=== PATIENT | female | born 1940 | race Caucasian/White ===

== ENCOUNTER 2022-02-14 13:04 | Emergency (ER) | payer OTHER, MEDICARE, MEDICAID ==
[~2022-02-14] VITALS: Ht 167.6 cm; Wt 63.5 kg
[~2022-02-14 13:04] MED LIST: ASPIRIN EC81 MG PO; DIAZEPAM5 MG PO; IBUPROFEN600 MG PO; LISINOPRIL20 MG PO; LOVASTATIN20 MG PO
== END 2022-02-14 14:41 | disposition home or self-care (01) ==
LOC: ED 13:04
DX: S62.616A Displaced fracture of proximal phalanx of right little finger, initial encounter for closed fracture (principal); S01.01XA Laceration without foreign body of scalp, initial encounter; I10 Essential (primary) hypertension; E78.00 Pure hypercholesterolemia, unspecified; F17.200 Nicotine dependence, unspecified, uncomplicated; Z79.899 Other long term (current) drug therapy; Z79.82 Long term (current) use of aspirin; W00.0XXA Fall on same level due to ice and snow, initial encounter
CPT/HCPCS: 70450; 73140; 99284-25

== ENCOUNTER 2022-08-09 13:09 | Emergency (ER) | payer MEDICARE, OTHER ==
[~2022-08-09] VITALS: Ht 167.6 cm; Wt 63.5 kg
[2022-08-09] MEDS ORDERED: CITALOPRAM HBR20 MG PO (13:35)
[2022-08-09 15:38] VITALS: BP 171/104
== END 2022-08-09 15:40 | disposition home or self-care (01) ==
LOC: ED 13:09
DX: S01.01XA Laceration without foreign body of scalp, initial encounter (principal); M25.521 Pain in right elbow; W19.XXXA Unspecified fall, initial encounter; F03.90 Unspecified dementia, unspecified severity, without behavioral disturbance, psychotic disturbance, mood disturbance, and anxiety; I10 Essential (primary) hypertension; F17.200 Nicotine dependence, unspecified, uncomplicated; Z79.899 Other long term (current) drug therapy
CPT/HCPCS: 12002; 70450; 72125; 73080; 99283-25

== ENCOUNTER 2023-08-15 12:49 | Emergency (ER) | payer MEDICARE, OTHER ==
[~2023-08-15] VITALS: Ht 167.6 cm; Wt 59.1 kg
[~2023-08-15 12:49] MED LIST changes: +CITALOPRAM HBR20 MG PO
[2023-08-15] MEDS ORDERED: SEROQUEL50 MG PO (13:07)
[2023-08-15] MEDS ORDERED: VISTARIL25 MG PO (13:07)
[2023-08-15] MEDS ORDERED: HYDROXYZINE PAM25 MG PO (13:07)
[2023-08-15 13:14] VITALS: BP 127/69
== END 2023-08-15 13:19 | disposition home or self-care (01) ==
LOC: ED 12:49
DX: N81.10 Cystocele, unspecified (principal); I10 Essential (primary) hypertension; F03.90 Unspecified dementia, unspecified severity, without behavioral disturbance, psychotic disturbance, mood disturbance, and anxiety; F17.200 Nicotine dependence, unspecified, uncomplicated; Z79.899 Other long term (current) drug therapy
CPT/HCPCS: 99282

== ENCOUNTER 2023-09-21 12:07 | Emergency (ER) | payer OTHER, MEDICARE ==
[~2023-09-21] VITALS: Ht 167.6 cm; Wt 63.3 kg
[~2023-09-21 12:07] MED LIST changes: +CEPHALEXIN500 M1 PO; +CITALOPRAM HBR10 MG PO; +HYDROXYZINE PAM25 MG PO; +OLANZAPINE5 MG PO; +SEROQUEL50 MG PO; +TYLENOL325 MG PO; +VISTARIL25 MG PO
[2023-09-21 13:06] VITALS: BP 142/84
== END 2023-09-21 13:06 | disposition home or self-care (01) ==
LOC: ED 12:07
DX: Z04.3 Encounter for examination and observation following other accident (principal); I10 Essential (primary) hypertension; F03.C0 Unspecified dementia, severe, without behavioral disturbance, psychotic disturbance, mood disturbance, and anxiety; F17.200 Nicotine dependence, unspecified, uncomplicated; W17.89XA Other fall from one level to another, initial encounter; Z79.899 Other long term (current) drug therapy
CPT/HCPCS: 99284

== ENCOUNTER 2023-11-06 06:59 | Emergency (ER) | payer MEDICARE, OTHER ==
[~2023-11-06] VITALS: Ht 167.6 cm; Wt 55.0 kg
[2023-11-06] MEDS ORDERED: ZYPREXA2.5 MG PO (07:34)
[2023-11-06 07:36] VITALS: BP 159/77
== END 2023-11-06 07:30 | disposition home or self-care (01) ==
LOC: ED 06:59
DX: S50.312A Abrasion of left elbow, initial encounter (principal); W06.XXXA Fall from bed, initial encounter; Z66 Do not resuscitate; I10 Essential (primary) hypertension; E03.9 Hypothyroidism, unspecified; F03.90 Unspecified dementia, unspecified severity, without behavioral disturbance, psychotic disturbance, mood disturbance, and anxiety; F17.200 Nicotine dependence, unspecified, uncomplicated; Z79.899 Other long term (current) drug therapy
CPT/HCPCS: 99283

== ENCOUNTER 2024-06-23 16:32 | Emergency (ER) | payer MEDICARE, OTHER ==
[~2024-06-23] VITALS: Ht 167.6 cm; Wt 54.5 kg
[~2024-06-23 16:32] MED LIST changes: +ZYPREXA2.5 MG PO
[2024-06-23] MEDS ORDERED: LOPERAMIDE2 M1 PO (16:46)
[2024-06-23] MEDS ORDERED: ALPRAZOLAM0.25 MG PO (16:46)
[2024-06-23] MEDS ORDERED: STIMULANT LAXA1 EACH PO (16:47)
[2024-06-23] MEDS ORDERED: MILK OF MA400 MG/5 M PO (16:47)
[2024-06-23 17:36] VITALS: BP 162/101
== END 2024-06-23 17:30 | disposition home or self-care (01) ==
LOC: ED 16:32
DX: S00.03XA Contusion of scalp, initial encounter (principal); W19.XXXA Unspecified fall, initial encounter; I10 Essential (primary) hypertension; F17.200 Nicotine dependence, unspecified, uncomplicated; Z79.899 Other long term (current) drug therapy
CPT/HCPCS: 70450; 99284-25

== ENCOUNTER 2025-01-11 16:53 | Inpatient (IN) | payer MEDICARE, OTHER ==
[~2025-01-11] VITALS: Ht 167.6 cm; Wt 58.5 kg
[~2025-01-11 16:53] MED LIST changes: +ALPRAZOLAM0.25 MG PO; -CITALOPRAM HBR10 MG PO; +CITALOPRAM HBR40 MG PO; +IMODIUM A-D2 M2 PO; +MILK OF MA400 MG/5 M PO; +STIMULANT LAXA1 EACH PO; -ZYPREXA2.5 MG PO
[2025-01-11] MEDS ORDERED: IBLOOD GLUCOSE TEST STRIP 1 EA TEST XX ONE (17:00)
[2025-01-11] MEDS ORDERED: MIDAZOLAM HCL 2 MG/2 ML VIAL IV ONE (17:15)
[2025-01-11 17:20] LABS: BASOPHILS 0.5 % (0.1-1.2); EOSINOPHILS 1.5 % (0.7-5.8); LYMPHOCYTES 36.6 % (19.3-51.7); MCH 30.1 PG (25.6-32.2); MCHC 32.5 g/dL (32.2-35.5); MCV 92.7 fL (79.4-94.8); MONOCYTES 5.4 % (4.7-12.5); NEUTROPHILS 52.4 % (34.0-71.1); RBC 4.52 M/uL (3.93-5.22)
[2025-01-11 17:38] LABS: ALT (SGPT) 36.0 U/L (14-59); AST (SGOT) 28.0 U/L (15-37); GLOMERULAR FILTRATION RATE,EST 86.0 mL/min (>60); PROTEIN, TOTAL 6.3 g/dL (6.4-8.2); UREA NITROGEN 19.0 mg/dL (7-18)
[2025-01-11 17:40] LABS: INR 1.07 (0.80-1.30); PROTIME 13.2 Sec (11.2-14.2)
[2025-01-11] MEDS ORDERED: LIDOCAINE 2% VISCOUS 6 ML SYR TOP ONE (18:00)
[2025-01-11 19:00] LABS: BLOOD/HGB, URINE TRACE-I (Negative); KETONE, URINE NEGATIVE (Negative); LEUK ESTERASE, URINE LARGE (negative); NITRITE, URINE POSITIVE (negative)
[2025-01-11] MEDS ORDERED: SODIUM CHLORIDE 0.9% 1,000 ML IV PRN (19:00)
[2025-01-11 19:02] LABS: BACTERIA, URINE 3+ /hpf (negative); CASTS, URINE NONE SEEN \\lpf; CRYSTALS, URINE NONE SEEN (0-1+); EPITHELIAL CELLS, URINE SQUAMOUS 1+ /lpf (0-1+); REFLEX CULTURE, URINE Yes (No)
[2025-01-11 19:03] LABS: INFLUENZA B NAA NEGATIVE (NEGATIVE); RESPIRATORY SYNCYTIAL VIR NAA NEGATIVE (NEGATIVE)
[2025-01-11 19:10] LABS: AMPHETAMINES, URINE NEGATIVE (NEGATIVE); BARBITURATES, URINE NEGATIVE (NEGATIVE); BENZODIAZEPINE, URINE POSITIVE (NEGATIVE); CANNABINOID, URINE NEGATIVE (NEGATIVE); COCAINE, URINE NEGATIVE (NEGATIVE); ECSTASY, URINE NEGATIVE (NEGATIVE); FENTANYL, URINE NEGATIVE (NEGATIVE); METHADONE, URINE NEGATIVE (NEGATIVE); OPIATES, URINE NEGATIVE (NEGATIVE); OXYCODONE, URINE NEGATIVE (NEGATIVE); PHENCYCLIDINE, URINE NEGATIVE (NEGATIVE)
[2025-01-11] MEDS ORDERED: PANTOPRAZOLE SODIUM 40 MG/10 ML VIAL IV ONE (20:00)
[2025-01-11] MEDS ORDERED: AZITHROMYCIN 500 MG in DEXTROSE 5% 250 ML IV ONE (20:15)
[2025-01-11] MEDS ORDERED: SODIUM CHLORIDE 0.9% 1,000 ML IV SCH (21:00)
[2025-01-11] MEDS ORDERED: PROCHLORPERAZINE EDISYLATE 10 MG/2 ML VIAL IV PRN (21:00)
[2025-01-11] MEDS ORDERED: PANTOPRAZOLE SODIUM 40 MG/10 ML VIAL IV SCH (21:00)
--- NOTE | 2025-01-11 21:34 | EKG ---
[facility] [address] [facility] [place] [id number] Signed Normal sinus rhythm Nonspecific ST abnormality Abnormal ECG When compared with ECG of 25-MAY-2016 10:45, Vent. rate has increased BY 28 BPM Nonspecific T wave abnormality now evident in Anterior leads Confirmed by Reza Matehws MD () on 01/11/2025 9:34:21 PM Electronically Signed By: REZA MATHEWS MD 01/11/25 2134 PATIENT NAME: WINSOME PARRISH Electrocardiogram DATE OF : 44 PHYSICIAN: REZA MATHEWS MD REPORT #: [id number] REPORT IS CONFIDENTIAL AND NOT TO BE RELEASED WITHOUT AUTHORIZATION
[2025-01-11 21:48] VITALS: BP 123/77
--- NOTE | 2025-01-11 22:17 | NUR ---
VERBAL REPORT RECEIVED FROM SÁNCHEZ KAUFMAN. PATIENT [facility] FLOOR VIA STRETCHER TO ROOM 120. PATIENT IS SOMNOLENT AT THIS TIME. PATIENT IS ON 15L VIA NON- REBREATHER. CPOX AT BEDSIDE, SPO2 READING LOW 90'S. PLACED ON TELE #1 SINUS TACH. FAMILY AT BEDSIDE. BED ALARM ON FOR PATIENT SAFETY. CALL LIGHT IN REACH.
[2025-01-11 22:33] VITALS: BP 91/58
--- NOTE | 2025-01-11 22:45 | NUR ---
HR ON TELE NOTED TO BE 120'S. IN TO ASSESS PT. PT VOMITING SMALL AMOUNT RUST COLORED EMESIS. PT REPOSTIONED TO RIGHT SIDE. ATTEMPTED TO SUCTION, PT CLENCHING TEETH. SpO2 MID 80'S WITH 15L/NRB. HR BACK TO 90'S. PRN N/V ADMIN PER EMAR. OXYGEN TITRATED TO MAX >15L. SpO2 UP TO 89%. MD PHONED AND UPDATED. WILL COME ASSESS PT ON FLOOR. HOB REMAINS ELEVATED. BED ALARM IN PLACE. PT IN VIEW OF NURSES STATION.
[2025-01-11] MEDS ORDERED: MORPHINE SULFATE 4 MG/ML VIAL IV PRN (23:00)
[2025-01-11] MEDS ORDERED: SODIUM CHLORIDE 0.9% 500 ML IV ONE (23:00)
--- NOTE | 2025-01-11 23:44 | NUR ---
MD TO FLOOR. NEW ORDERS RECEIVED. BOLUS INFUSING PER ORDER. RESPIRATIONS 42. SpO2 91% ON VAPOTHERM 25L/100% FIO2. PRN ADMIN PER EMAR. HOB REMAINS ELEVATED. BED ALARM FOR SAFETY. PT IN VIEW OF NURSES STATION.
[2025-01-12] VITALS (11 sets, daily range): BP systolic 100–114; BP diastolic 54–68
--- NOTE | 2025-01-12 00:56 | NUR ---
PATIENT RESTING EYES CLOSED BREATHING SHALLOW RESPIRATIONS 24 BREATHS PER MINUTE. PATIENT ON 25L 100% FIO2 VIA VAPOTHERM. BED ALARM ON FOR PATIENT SAFETY. CALL LIGHT IN REACH. CPOX AT BEDSIDE SPO2 93%, 86 BPM.
--- NOTE | 2025-01-12 01:36 | NUR ---
PATIENT HAS X2 EMESIS. THIS RN SUCTIONS PATIENTS MOUTH. HEAD POSTIONED TO PREVENT ASPIRATION. PATIENT ON 25 L/MIN, FIO2 100% VIA VAPOTHERM. BED ALARM ON FOR PATIENT SAFETY. CPOX AT BEDSIDE, SPO2 92%, 86 BPM, REPSIRATIONS 20 BREATHS PER MINUTE. TELE #1 [address] SR. BED ALARM ON FOR PATIENT SAFETY. CALL LIGHT IN REACH.
--- NOTE | 2025-01-12 04:12 | NUR ---
PATIENT RESPIRATIONS ARE 27 BREATHS PER MINUTE. PRN ADMIN (PER EMAR). PATIENT REPOSITIONED. PATIENT RESTING EYES CLOSED BREATHING LABORED. CPOX AT BEDSIDE READING SPO2 95%, 94 BPM. PATIENT ON 25 L/MIN, FIO2% 100 VIA VAPOTHERM. BED ALARM ON FOR PATIENT SAFETY. CALL LIGHT IN REACH.
--- NOTE | 2025-01-12 05:12 | NUR ---
PATIENT HAS HAD NO CHANGES IN MENTAL STATUS. RESPIRATIONS ARE 26 BREATHS PER MINUTE AND LABORED. CPOX AT BEDSIDE READING 95%, 94 BPM. RECEVING 25 L/MIN, FIO2 100% VIA VAPOTHERM. BED ALARM ON FOR PATION SAFETY. CALL LIGHT IN REACH.
[2025-01-12 05:27] LABS: BASOPHILS 0.2 % (0.1-1.2); EOSINOPHILS 0 % (0.7-5.8); LYMPHOCYTES 2.9 % (19.3-51.7); MCH 30.0 PG (25.6-32.2); MCHC 32.9 g/dL (32.2-35.5); MCV 91.2 fL (79.4-94.8); MONOCYTES 4.4 % (4.7-12.5); NEUTROPHILS 91.7 % (34.0-71.1); RBC 4.56 M/uL (3.93-5.22)
[2025-01-12 05:42] LABS: SMEAR REVIEW BLOOD SEE COMMENTS
[2025-01-12 05:45] LABS: ALT (SGPT) 35.0 U/L (14-59); AST (SGOT) 22.0 U/L (15-37); GLOMERULAR FILTRATION RATE,EST 66.0 mL/min (>60); PHOSPHORUS, INORGANIC 3.5 mg/dL (2.5-4.9); PROTEIN, TOTAL 5.8 g/dL (6.4-8.2); UREA NITROGEN 24.0 mg/dL (7-18)
[2025-01-12 05:49] LABS: CHOLESTEROL/HDL RATIO 3.1; LDL CHOLESTEROL 115.0 mg/dL (< 129); NON-HDL CHOLESTEROL 125.0; VLDL CHOLESTEROL 10.0
--- NOTE | 2025-01-12 06:12 | NUR ---
PATIENT REPOSITIONED IN BED AT THIS TIME. FRESH GOWN PLACED ON PATIENT. TELE #1 [address]ING SR. CPOX AT BEDSIDE SPO2 95%. 97 BPM. PATIENT RESTING EYES CLOSED RESPIRATIONS 24. BED ALARM ON FOR PATIENT SAFETY. CALL LIGHT IN REACH.
--- NOTE | 2025-01-12 07:16 | NUR ---
RECIEVED REPORT FROM MANDEEP TINAJERO, AND MANDEEP CUNNINGHAM. PT IS RESTING IN BED WITH EYES CLOSED. MOISÉS JOSEPH, IN ROOM. VISITOR AT BEDSIDE. VAPOTHERM IS SECURELY ON FACE. CALL LIGHT IS WITHIN REACH.
--- NOTE | 2025-01-12 08:15 | NUR ---
PT RESTING IN BED WITH EYES CLOSED. RR EVEN AND UNLABORED. CPOX AT BEDSIDE, VAPOTHERM SEUCURELY ON FACE. SON IS AT BEDSIDE. CALL LIGHT WITHIN REACH.
[2025-01-12] MEDS ORDERED: MAGNESIUM SULFATE 2 GM/50 ML BAG IV ONE (08:30)
[2025-01-12] MEDS ORDERED: PANTOPRAZOLE SODIUM 40 MG/10 ML VIAL IV SCH (09:00)
--- NOTE | 2025-01-12 09:55 | NUR ---
NOTIFIED DR. MATHEWS OF PT'S AXILLARY TEMP OF 100.5. MD WITH NO ORDERS AT THIS TIME.
[2025-01-12] MEDS ORDERED: PIPERACILLIN/TAZOBACTAM 4.5 GM in DEXTROSE 5% 100 ML IV SCH (10:00)
--- NOTE | 2025-01-12 10:12 | NUR ---
CASE MANAGEMENT IN ROOM SPEAKING WITH [facility] CARE[facility]IVER.
[2025-01-12] MEDS ORDERED: ACETAMINOPHEN 1,000 MG/100 ML VIAL IV ONE (10:15)
--- NOTE | 2025-01-12 10:30 | NUR ---
In to assess Gloria. Farmer the managers from [facility] present. She states pt has been living with them. Pt son kept her home and cared for her for 10 years until she could not longer live at home. 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 Pt is also legally blind. She has severe anxiety and cannot tolerate her wc pushed from behind or someone standing behind her. If pt is awake, she needs to be approached from the front. Pts son, Saravanan, is her POA. Pt is not responsive and all information received from Darian. She plans on speaking with son to check if they would like this pt to start hospice and return to [facility]. I let Darian know, I have spoke with Dr. Leong and he is currently treating the pt as son would like antibiotics to see if pt will awaken. plan on calling the son later to discuss if this is the plan he wishes to cont. Will fu tomorrow.
--- NOTE | 2025-01-12 10:59 | NUR ---
UR CLINICAL REVIEW: 2 MN FOR VERSALUS-PER SUPERVISOR MEETS INPATIENT FOR PNEUMONIA WITH INCREASED OXYGEN DEMANDS, NEED FOR IVF/IV ABX AND SERIAL MONITORING. MEDICARE INPT 01/11/25 @ 2055 NO AUTH REQUIRED PER MEDICARE GUIDELINES DISCHARGE DISPO PENDING FURTHER TREATMENT PLANS
--- NOTE | 2025-01-12 11:11 | NUR ---
ADMINISTERED MEDS PER ORDERS. PT REMAINS UNRESPONSIVE TO TOUCH OR SOUND.
--- NOTE | 2025-01-12 11:23 | NUR ---
IV TYLENOL INFUSION COMPLETE. IV SITE FLUSHED WITH 10 ML NORMAL SALINE AND IS NOW SALINE LOCKED. IV DRESSING REMAINS CLEAN, DRY, AND INTACT. PATIENT IS LYING IN BED WITH EYES CLOSED AND RESPIRATIONS ARE EVEN AND UNLABORED. VAPOTHERM REMAINS IN PLACE. CPOX AT BEDSIDE. CALL LIGHT AND PERSONAL BELONGINGS ARE WITHIN REACH.
[2025-01-12] MEDS ORDERED: PHARMACY RENAL DOSE ADJUSTMENT 1 DOSE MISC PO SCH (12:00)
--- NOTE | 2025-01-12 12:28 | NUR ---
PT RESTING IN BED WITH EYES CLOSED. HOB IS ELEVATED AND RR IS EVEN AND UNLABORED. FALL MATS IN PLACE, BED IN LOWEST POSITION, BED ALARM IS ON. CALL LIGHT IS WITHIN REACH.
--- NOTE | 2025-01-12 13:54 | NUR ---
PATIENT IS LYING IN BED WITH EYES CLOSED AND RESPIRATIONS ARE EVEN AND UNLABORED. PATIENT WITH VAPOTHERM IN PLACE. CALL LIGHT WITHIN REACH.
--- NOTE | 2025-01-12 15:25 | NUR ---
PT RESTING IN BED WITH EYES CLOSED, RR EVEN AND UNLABORED. VAPOTHERM SECURELY ON FACE, HOB IS ELEVATED. CALL LIGHT AND PERSONAL BELONGINGS WITHIN REACH.
--- NOTE | 2025-01-12 16:30 | NUR ---
PT RESTING IN BED WITH EYES CLOSED. RR EVEN AND UNLABORED, HOB IS ELEVATED. FALL MATS IN PLACE, BED IN LOWEST POSITION, BED ALARM ON. CALL LIGHT IS WITHIN REACH.
--- NOTE | 2025-01-12 18:10 | NUR ---
THIS RN AND ROUNDED ON THE PATIENT WITH HER SON AT BEDSIDE. MD NOTIFIED OF MOST RECENET TEMPERATURE AND PATIENT REMAINING UNRESPONSIVE. AWARE. STATED WE WILL CONTINUE WITH IV FLUIDS AND IV ANTIBIOTICS AND CONTINUE TO MONITOR THE FEVER AT THIS TIME. NO NEW ORDERS.
--- NOTE | 2025-01-12 19:22 | NUR ---
REPORT RECEIVED FROM MANDEEP BUTT AND YUMIKO KAUFMAN. PT RESTING IN BED, EYES CLOSED. RESPIRATIONS EVEN AND UNLABORED. IV INFUSING WELL. NO APPARENT NEEDS NOTED AT THIS TIME. CALL LIGHT WITHIN REACH.
[2025-01-12] MEDS ORDERED: IBLOOD GLUCOSE TEST STRIP 1 EA TEST VI PRN (20:15)
--- NOTE | 2025-01-12 20:19 | NUR ---
SPOKE WITH DR. SHELTON RE ACCUCHECK SINCE PT STILL NPO. STATED HE WILL PUT THE ORDER IN.
[2025-01-12] MEDS ORDERED: GLUCAGON,HUMAN RECOMBINANT 1 MG/ML VIAL SUB-Q PRN (20:30)
[2025-01-12] MEDS ORDERED: IBLOOD GLUCOSE TEST STRIP 1 EA TEST XX PRN (20:30)
[2025-01-12] MEDS ORDERED: DEXTROSE 50% 50 ML SYR IV PRN ×2 (20:30)
[2025-01-12] MEDS ORDERED: DEXTROSE 5% 1,000 ML IV PRN (20:30)
[2025-01-12] MEDS ORDERED: DEXTROSE 5% - LACTATED RINGERS 1,000 ML IV SCH (20:30)
--- NOTE | 2025-01-12 20:46 | NUR ---
WINE BLENDER OBTAINED VITALS AND I&O. PT STATES NO NEEDS AT THIS TIME. [facility] WITHIN REACH.
[2025-01-12] MEDS ORDERED: AZITHROMYCIN 500 MG in DEXTROSE 5% 250 ML IV SCH (21:00)
--- NOTE | 2025-01-12 22:04 | NUR ---
PT LAYING IN BED. RESPIRATIONS EVEN SATS 93% ON HFNC 25L/MIN 80% FIO2. PT DEEPLY ASLEEP. PUPILS REACTIVE. IV FLUID INFUSING WELL. CBG 126 MG/DL. DUE MEDICATION GIVEN ORDERED. NO APPARENT NEEDS NOTED AT THIS TIME. CALL LIGHT IN REACH.
--- NOTE | 2025-01-12 23:54 | NUR ---
PT LAYING IN BED. RESPIRATIONS EVEN AND UNLABORED. SATS AT 94% ON 25L, 80% FIO2. IV INFUSING WELL. NO APPARENT NEEDS NOTED AT THIS TIME. CALL LIGHT WITHIN REACH.
[2025-01-13] VITALS (13 sets, daily range): BP systolic 108–147; BP diastolic 56–73
--- NOTE | 2025-01-13 01:47 | NUR ---
ANALYST SALES OBTAINED VITALS AND I&O. PT STATES NO NEEDS AT THIS TIME. CALL LIGHT WITHIN REACH.
[2025-01-13] MEDS ORDERED: Insulin Regular, Human 100 UNIT/ML ML SUB-Q SCH (02:00)
[2025-01-13] MEDS ORDERED: IBLOOD GLUCOSE TEST STRIP 1 EA TEST VI SCH (02:00)
--- NOTE | 2025-01-13 02:14 | NUR ---
IV PUMP ALARMING. NEW BAG IV FLUID INFUSING PER ORDER. IV FLUSHES WNL. PATIENT RESPIRATIONS 24. PRN MEDICATION ADMINISTERED. BS OBTAINED AND RECORDED. NO FURTHER NEEDS AT THIS TIME. CALL LIGHT IN REACH.
--- NOTE | 2025-01-13 02:31 | NUR ---
PT RESTING IN BED, RESPIRATION AT 2AM WAS 24 AND WAS GIVEN [id number] ORDERED, IMPROVED TO 20 BREATHS PER MINUTE. SATS AT 94% ON 25L 80% FIO2 VAPOTHERM. IV INFUSING WELL. NO APPARENT NEEDS NOTED AT THIS TIME. CALL LIGHT IN REACH.
--- NOTE | 2025-01-13 04:10 | NUR ---
PT LAYING IN BED. RESPIRATIONS EVEN AND UNLABORED. SATS 94% ON 25L 80% FIO2. IV INFUSING WELL. NO APPARENT NEEDS NOTED AT THIS TIME. CALL LIGHT WITHIN REACH.
[2025-01-13 05:18] LABS: BASOPHILS 0.3 % (0.1-1.2); EOSINOPHILS 0.1 % (0.7-5.8); LYMPHOCYTES 12.8 % (19.3-51.7); MCH 30.2 PG (25.6-32.2); MCHC 32.7 g/dL (32.2-35.5); MCV 92.4 fL (79.4-94.8); MONOCYTES 5.2 % (4.7-12.5); NEUTROPHILS 81.1 % (34.0-71.1); RBC 3.44 M/uL (3.93-5.22)
[2025-01-13 05:38] LABS: ALT (SGPT) 21.0 U/L (14-59); AST (SGOT) 24.0 U/L (15-37); GLOMERULAR FILTRATION RATE,EST 77.0 mL/min (>60); PROTEIN, TOTAL 4.5 g/dL (6.4-8.2); UREA NITROGEN 18.0 mg/dL (7-18)
--- NOTE | 2025-01-13 06:12 | NUR ---
PT RESTING IN BED. VITAL SIGNS TAKEN AND RECORDED. INTAKE OUTPUT RECORDED. REPOSITIONED PT AND PT'S SAT DROPPED TO 89, RESPIRATIONS WENT UP TO 24 AND SECRETIONS WAS COMING 0UT OF THE MOUTH. SUCTIONED SECRETIONS, MORPHINE GIVEN ORDERED. SAT NOW BACK UP TO 93-94% SON AT BEDSIDE. NO FURTHER NEEDS NOTED AT THIS TIME. CALL LIGHT IN REACH.
--- NOTE | 2025-01-13 06:29 | NUR ---
SPO2 DROPS TO 88%, SUCTIONED BY RN. pt WITH SECRETIONS IN MOUTH AND NARES. NO COUGHING, CLEARING SECRETIONS. VAPOTHERM INCREASED TO 25L, 90% FIO2. SON AT BEDSIDE. EDUCATION PROVIDED ON OXYGEN REQUIREMENTS.
--- NOTE | 2025-01-13 06:40 | NUR ---
WHILE THIS RN WAS TRYING TO OBSERVE PT IF INTERVENTIONS WORKED, PT SUDDENLY DROPPED T0 89% AND SUSTAINED, REPOSITIONED PT, CHANGED CPOX SENSOR, BELINDA RN INCREASED FIO2 TO 90%, PT CAME BACK UP TO 90-91%. SON STILL AT BEDSIDE. DENIES NEEDS AT THIS TIME. CALL LIGHT IN REACH.
--- NOTE | 2025-01-13 07:10 | NUR ---
RECIEVED REPORT FROM MANDEEP SAVAGE. PT IS RESTING IN BED WITH EYES CLOSED. RR IS EVEN AND UNLABORED. HOB IS ELEVATED. VAPOTHERM IS SECURELY IN PLACE, BED ALARM IS ON, BED IN LOWEST POSITION. SON REMAINS AT BEDSIDE.
[2025-01-13] MEDS ORDERED: ALBUTEROL SULFATE 0.083% 3 ML VIAL INH PRN (07:15)
[2025-01-13] MEDS ORDERED: BUDESONIDE 0.5 MG/2 ML VIAL INH SCH (08:55)
--- NOTE | 2025-01-13 09:21 | NUR ---
PATIENT IS LYING IN BED WITH HOB ELEVATED. PATIENT WITH EYES CLOSED AND RESPIRATIONS ARE EVEN AND UNLABORED. VAPOTHERM REMAINS IN PLACE AT 25L AND 100% FIO2. CPOX AT BEDSIDE. PATIENT SON IN THE ROOM. CALL LIGHT AND PERSONAL BELONGINGS ARE WITHIN REACH.
--- NOTE | 2025-01-13 10:13 | NUR ---
RT NOTIFIED THAT PATIENT IS CURRENTY AT 88% ON VAPOTHERM SETTINGS, PER RT NEW ORDER TO MAINTAIN 88-92%, ADJUSTED PARAMETERS ON CPOX FOR ALARMING. PRIMARY RN NOTIFIED.
--- NOTE | 2025-01-13 10:17 | NUR ---
NOTIFIED DR. MATHEWS OF PT'S AXILLARY TEMP OF 100.2. MD TO PUT IN ORDERS.
[2025-01-13] MEDS ORDERED: ACETAMINOPHEN 1,000 MG/100 ML VIAL IV ONE (11:00)
--- NOTE | 2025-01-13 11:03 | NUR ---
MOISÉS TOLEDO AND MOISÉS CHRISTINA ARE IN THE ROOM AT THIS TIME PROVIDING PATIENT CARE. PATIENT SON REMAINS IN THE ROOM.
--- NOTE | 2025-01-13 11:24 | NUR ---
BED BATH, LINEN CHANGE, AND TALAVERA CARE DONE BY THIS FINISHING POWDER PRESS OPERATOR AND MOISÉS CHRISTINA. PATIENT HAD YELLOW MUCOUS FROM MOUTH WITH ROLLING. ORAL CARE PRODUCED MORE YELLOW MUCOUS AND SOME BLOOD ON THE SWABS. PATIENT WAS TURNED ONTO THEIR RIGHT SIDE WITH PILLOWS PLACED BETWEEN THEIR KNEES AND ARMS. HEELS WERE ALSO FLOATED DUE TO REDNESS, MANDEEP VIRAMONTES NOTIFIED.
--- NOTE | 2025-01-13 11:25 | NUR ---
Attempted to see pt and son. Pt is getting a bedbath and son has left. Will try to see later today.
[2025-01-13] MEDS ORDERED: ALBUTEROL/IPRATROPIUM 3 ML NEB INH SCH (12:00)
--- NOTE | 2025-01-13 12:04 | NUR ---
PT RESTING IN BED WITH EYES CLOSED. RR EVEN AND UNLABORED. VAPOTHERM SECURELY ON FACE, CPOX IS AT BEDSIDE. BED ALARM IS ON. CALL LIGHT WITHIN REACH, VISITOR IS AT BEDSIDE.
--- NOTE | 2025-01-13 13:12 | NUR ---
PATIENT IS LYING IN BED WITH EYES CLOSED AND RESPIRATIONS ARE EVEN AND UNLABORED. VAPOTHERM IN PLACE. RESPIRATORY THERAPY NOTIFIED OF PATIENT FAMILY NOT IN THE ROOM AT THIS TIME. RT STATED THANK YOU. MOISÉS TOLEDO REMAINS IN THE ROOM AT THIS TIME.
--- NOTE | 2025-01-13 13:12 | NUR ---
PATIENT'S TEMPERATURE WAS LOWERED TO 99.1, MANDEEP VIRAMONTES NOTIFIED. REPOSITIONED TO THEIR RIGHT SIDE. ORAL CARE PERFORMED AND CHAPSTICK APPLIED TO LIPS.
[2025-01-13] MEDS ORDERED: TYLENOL325 MG PO (13:56)
[2025-01-13] MEDS ORDERED: ARTIFICIAL TEAR15 M3 OU (13:57)
[2025-01-13] MEDS ORDERED: DULCOLAX5 MG PO (13:58)
[2025-01-13] MEDS ORDERED: PEPTO-BISM262 MG/15 PO (14:02)
--- NOTE | 2025-01-13 14:02 | NUR ---
[place] DC REVIEW: CONTINUES NEED FOR VAPOTHERM, NO IMPROVEMENT IN MENTATION. LIVES AT [facility]. PLAN TO RETURN TO [facility]. ADD: 01/14-01/15/25 NO ACTIONS REQUIRED.
--- NOTE | 2025-01-13 14:03 | NUR ---
MED REC COMPLETE
[2025-01-13] MEDS ORDERED: LORazepam 2 MG/ML VIAL IV ONE (15:30)
[2025-01-13 15:33] LABS: BASOPHILS 0.3 % (0.1-1.2); EOSINOPHILS 0 % (0.7-5.8); LYMPHOCYTES 16.7 % (19.3-51.7); MCH 30.2 PG (25.6-32.2); MCHC 31.4 g/dL (32.2-35.5); MCV 95.9 fL (79.4-94.8); MONOCYTES 5.4 % (4.7-12.5); NEUTROPHILS 76.7 % (34.0-71.1); RBC 3.68 M/uL (3.93-5.22)
--- NOTE | 2025-01-13 15:41 | NUR ---
RT IN THE ROOM SUCTIONING PT, CONCERNED THAT PATIENT MAY BE SEIZING. PATIENT IS CLAMPED DOWN, APPEARS TO BE BITING ON TONGUE AND VERY RIGID/STIFF. NO SHAKING OR SEIZURE MOVEMENT NOTED OTHERWISE. MD NOTIFIED, WILL COME TO BEDSIDE TO EVALUATE. JUST AFTER CALL TO MD THIS RN ENTERS ROOM, PT TWITCHING AND HAS SEIZURE LIKE JERKS WITH RT PRESENT AT BEDSIDE. RAPID RESPONSE CALLED AT THIS TIME, MD ARRIVING TO THE FLOOR AT 1515. 2MG IV ATIVAN GIVEN PUSH PER VERBAL ORDERS FROM MD. VS STABLE. SEE CHARTING. CBG 150. ORDERS INPUT FOR STAT CT HEAD W/O CONTRAST, LABS: CBC, CMP, MG, LACTIC AND TYPE & SCREEN (STAT). CURRENTLY PATIENT HAS BIT TONGUE AND ACTIVELY BLEEDING. PT TAKEN TO CT AT 1530. OUTPT RT LOPEZ CALLED TO SEE IF WE CAN COORDINATE TO GET STAT EEG AT BEDSIDE. PT ARRIVES BACK TO FLOOR AT [address] WITH PRIMARY RN/RT/MD AT BEDSIDE.
[2025-01-13 15:49] LABS: ALT (SGPT) 26.0 U/L (14-59); AST (SGOT) 27.0 U/L (15-37); GLOMERULAR FILTRATION RATE,EST 64.0 mL/min (>60); PROTEIN, TOTAL 5.0 g/dL (6.4-8.2); UREA NITROGEN 17.0 mg/dL (7-18)
--- NOTE | 2025-01-13 15:52 | NUR ---
PATIENT RETURNED TO THE FLOOR AT THIS TIME FROM HEAD CT. PATIENT RECONNECTED TO CPOX, VAPOTHERM, AND IV FLUIDS. SEIZURE PADS AND FALL MATS IN PLACE. PATIENT TURNED ON HER RIGHT SIDE. SUCTION WITHIN REACH. PATIENT SON REMAINS SITTING ON THE COUCH AND REPORTS NO NEEDS AT THIS TIME.
[2025-01-13] MEDS ORDERED: LACTATED RINGER'S 1,000 ML IV ONE (16:00)
[2025-01-13] MEDS ORDERED: LORazepam 2 MG/ML VIAL IV PRN (16:00)
[2025-01-13 16:15] LABS: ABO A; RH POSITIVE
[2025-01-13 16:16] LABS: ANTIBODY SCREEN NEGATIVE
[2025-01-13] MEDS ORDERED: VANCOMYCIN HCL 1,500 MG in DEXTROSE 5% 250 ML IV ONE (17:00)
[2025-01-13] MEDS ORDERED: VANCOMYCIN PER PHARMACY PROTOCOL IV SCH (17:00)
--- NOTE | 2025-01-13 17:15 | NUR ---
IV PUMP ALARMING, THIS RN INTO ROOM, BOLUS COMPLETE. IV ABX STARTED - SEE MAR. SON REMAINS PRESENT IN ROOM, PT REMAINS UNRESPONSIVE AND EYES CLOSED. IV REMAINS PATENT AT THIS TIME. BED ALARM IN PLACE FOR SAFETY. ALL PT CARE NEEDS MET AT THIS TIME.
--- NOTE | 2025-01-13 17:15 | NUR ---
RT IS IN WITH PT AT THIS TIME.
--- NOTE | 2025-01-13 18:07 | NUR ---
PATIENT IS LYING IN BED ON HIS LEFT SIDE WITH EYES CLOSED AND RESPIRATIONS ARE EVEN AND UNLABORED. VAPOTHERM IN PLACE. CPOX AT BEDSIDE. SEZURE PADS AND DALL MATS IN PLACE.
--- NOTE | 2025-01-13 19:27 | NUR ---
REPORT RECEIVED FROM WANDER KAUFMAN AND YUMIKO KAUFMAN. PT RESTING IN BED. RESPIRATIONS UNLABORED SATS AT 90% ON 40L 70%FIO2. IV INFUSING WELL. NO APPARENT NEEDS NOTED AT THIS TIME. CALL LIGHT IN REACH.
--- NOTE | 2025-01-13 20:58 | NUR ---
PT LAYING IN BED. RESPIRATIONS UNLABORED. VITAL SIGNS TAKEN AND RECORDED. INTAKE OUTPUT RECORDED. FULL ASSESSMENT DONE. DUE MEDICATIONS GIVEN ORDERED. IV FLUID INFUSING WELL. NO FURTHER NEEDS NOTED AT THIS TIME. CALL LIGHT IN REACH.
--- NOTE | 2025-01-13 22:40 | NUR ---
PT RESTING IN BED. RESPIRATIONS EVEN AND UNLABORED. SATS AT 92-93% ON 40L 50%FIO2 VAPOTHERM. IV INFUSING WELL. NO APPARENT NEEDS NOTED AT THIS TIME. CALL LIGHT IN REACH.
--- NOTE | 2025-01-13 23:29 | NUR ---
PT LAYING IN BED. RESPIRATIONS UNLABORED SATS AT 94% ON 40L 50% FIO2. IV INFUSING WELL. NO APPARENT NEEDS NOTED AT THIS TIME. CALL LIGHT IN REACH.
[2025-01-14] VITALS (11 sets, daily range): BP systolic 90–133; BP diastolic 50–71
--- NOTE | 2025-01-14 01:48 | NUR ---
PT LAYING IN BED. RESPIRATIONS UNLABORED. SATS T95% on 40L 50% FIO2 VAPOTHERM. VITAL SIGNS TAKEN AND RECORDED. INTAKE OUTPUT RECORDED. ACCU CHECK DONE. DUE MEDICATIONS GIVEN. NO FURTHER NEEDS NOTED AT THIS TIME. CALL LIGHT IN REACH.
--- NOTE | 2025-01-14 03:19 | NUR ---
PT HAS A TEMP OF 100.5F, NOTIFIED DR. SHELTON. ACETAMINOPHEN 1000 MG IV ONCE ORDERED.
[2025-01-14] MEDS ORDERED: ACETAMINOPHEN 1,000 MG/100 ML VIAL IV ONE ×2 (03:30→19:00)
--- NOTE | 2025-01-14 03:37 | NUR ---
PT LAYING IN BED, RESPIRATIONS EVEN AND UNLABORED, SATS AT 94% ON 40L 50% FIO2. ACETAMINOPHEN 1000 MG IV GIVEN ONCE FOR TEMP 100.5F. NO OTHER NEEDS NOTED AT THIS TIME. CALL LIGHT IN REACH.
[2025-01-14 05:12] LABS: BASOPHILS 0.3 % (0.1-1.2); EOSINOPHILS 0.2 % (0.7-5.8); LYMPHOCYTES 11.4 % (19.3-51.7); MCH 29.7 PG (25.6-32.2); MCHC 32.1 g/dL (32.2-35.5); MCV 92.6 fL (79.4-94.8); MONOCYTES 4.8 % (4.7-12.5); NEUTROPHILS 82.8 % (34.0-71.1); RBC 3.23 M/uL (3.93-5.22)
[2025-01-14 05:35] LABS: ALT (SGPT) 20.0 U/L (14-59); AST (SGOT) 21.0 U/L (15-37); GLOMERULAR FILTRATION RATE,EST 81.0 mL/min (>60); PROTEIN, TOTAL 4.7 g/dL (6.4-8.2); UREA NITROGEN 14.0 mg/dL (7-18)
--- NOTE | 2025-01-14 06:30 | NUR ---
PT LAYING IN BED. RESPIRATIONS AT 26, MORPHINE GIVEN ORDERED. SATS BETWEEN 93-95% ON 35L 45% FIO2. IV INFUSING WELL. SON AT BEDSIDE. DENIES FURTHER NEEDS. CALL LIGHT IN REACH.
--- NOTE | 2025-01-14 07:22 | NUR ---
RECIEVED REPORT FROM MANDEEP SAVAGE. PATIENT RESTING IN BED WITH EYES CLOSED, RESPIRATIONS EVEN AND UNLABORED, HFNC AND CPOX IN PLACE. FAMILY AT BEDISDE. IVF INFUSING WITHOUT DIFFICULTY. NO NEEDS IDENTIFIED AT THIS TIME. CALL LIGHT IN REACH.
[2025-01-14] MEDS ORDERED: VANCOMYCIN HCL 1,250 MG in DEXTROSE 5% 250 ML IV SCH (09:00)
[2025-01-14] MEDS ORDERED: POTASSIUM CHLORIDE 40 MEQ,LIDOCAINE HCL 1% 40 MG in DEXTROSE 5% 250 ML IV ONE (09:00)
--- NOTE | 2025-01-14 09:31 | NUR ---
REVIEWED NEW CXR, INFORMED OF NEW FRACTURE TO (L) HUMERUS. KIM FROM [facility] CALLED BY CASE [id number] TO VERIFY THAT PATIENT DID NOT FALL, NO RECENT FALLS EITHER. HE REPORTS PATIENT WAS SITTING IN WHEELCHAIR AND LET OUT A LOUD CRY, THEN SLUMPED TO THE LEFT AND BECAME UNRESPONSIVE. NO FALLS THOUGH.
--- NOTE | 2025-01-14 10:30 | NUR ---
Spoke with pts son. Discussed with son what he would like for this pt on dc. He is unclear what pts needs will be. I updated, I had a call from Darian at [facility] and pt may only return if she is on hospice. Pt will now be above their level of care. Pt also has a humerous fracture. Son does not feel pt can return to [facility]. We discussed the different levels of care. Pt [place] on [place] medicaid through the state per son. I contact Zahida at [facility] to confirm. Pt is waiting for EEG to be completed to make decisions. He does state he feels like mom is at the end of her life and is not going to get better. I gave him a Personal choice list of SNFs in our area and helped him check fo medicare ratings. He would like me to check [facility] and [facility] for beds.
--- NOTE | 2025-01-14 11:07 | NUR ---
LOPEZ WITH RT IN DOING EEG PROCEDURE AT THIS TIME. PATIENT IS VERY RIGID, SHE IS HAVING ABNORMAL READINGS ON THE EEG SCAN. NECK IS RIGID WELL PER RT. PRN ATIVAN IS GOING TO BE GIVEN CLOSE TO END OF EEG TO SEE IF ANY CHANGES OR IMPROVEMENT WITH ATIVAN FOR SEIZURES. WILL GET RECORDING WITH MEDICATION ADMINISTRATION FOR REVIEW WELL. PRIMARY RN NOTIFIED OF POC AND UPDATE.
--- NOTE | 2025-01-14 12:27 | NUR ---
PATIENT'S RIGHT HIP AND BACK FLOATED. ORAL CARE DONE. HAIR BRUSHED OUT FOLLOWING EEG.
--- NOTE | 2025-01-14 12:30 | NUR ---
ASSESSMENT COMPLETED. ABX HUNG PER EMAR ORDER. FAMILY AT BEDISDE. PATIENT RESTING WITH EYES CLOSED, HFNC AND CPOX ON. TALAVERA DRAINING. NO OTHER NEEDS IDENTIFIED AT THIS TIME. CALL LIGHT IN REACH.
--- NOTE | 2025-01-14 14:13 | NUR ---
IN ROOM WITH REPAIR SERVICER TO REPOSITION TO FLOATING WITH PILLOWS. LIP CARE PERFORMED. NO NEEDS IDENTIFIED AT THIS TIME. CALL LIGHT IN REACH.
--- NOTE | 2025-01-14 14:22 | NUR ---
Spoke with Dr. Leong. Daughter arrived earlier and both sons were in the room. Planned to go and speak with family with Dr. Leong, family have left. asked if [facility] could take this pt tomorrow. I left a message with Jennifer asking if they could take a pt on the weekend.
--- NOTE | 2025-01-14 14:30 | NUR ---
Updated by Dr. Leong. Son is paving by the airport. He plans to return around 5 pm to meet with myself and
--- NOTE | 2025-01-14 14:37 | NUR ---
SCHEDULED PRN MEDICATION GIVEN FOR AIR HUNGER PER EMAR ORDERS. PATIENT RR 30 WITH INCREASED SECRETIONS. PATIENT HOB AT 40 DEGRESS. PATIENT RESTING WITH EYES CLOSED WITH INCREASED WORK OF BREATHING. NO SIGNS OF DISTRESS. NO NEEDS IDENTIFED AT THIS TIME. CALL LIGHT IN REACH.
[2025-01-14] MEDS ORDERED: LORazepam 2 MG/ML VIAL IV SCH (15:00)
--- NOTE | 2025-01-14 15:00 | NUR ---
RA TRIAL 84%. 90% ON 2 LPM. FORMER SMOKER GOAL 88-92%. GOAL IF ON HOSPICE O2 PRN COMFORT.
--- NOTE | 2025-01-14 16:39 | NUR ---
DR MATHEWS IN ROOM UPDATING PATIENT SON ON PATIENT STATUS. CASE MANAGEMENT IN ROOM DISCUSSING PLACEMENT WITH SON. SCHEDULED MEDICATIONS GIVEN PER EMAR ORDER. SUPPLY AND DISTRIBUTION MANAGER PERFORMED ORAL CARE ON PATIENT. PATIENT RESTING WITH EYES CLOSED, RESPIRATIONS EVEN AND UNLABORED. NO NEEDS IDENTIFIED AT THIS TIME. CALL LIGHT IN REACH.
--- NOTE | 2025-01-14 16:45 | NUR ---
Son returned. Visited with Dr. Leong, RN, and myself. Dr updated son on pts outlook and their is an accepting facility and hospice could admit tomorrow if this is their wish. Son requests to wait for his sister to arrive and discuss. Discussed hospice with family. [facility] would accept this pt as a medicaid terminal operator care pt. [facility] could admit tomorrow as long as it is before 1pm. I'll check back with family later.
--- NOTE | 2025-01-14 16:49 | NUR ---
pt repositioned. pt bottom assessed intact. LH iv site infiltrate from iv infusion. wrapped in a warm blanket.
--- NOTE | 2025-01-14 17:10 | NUR ---
NOtified by staff pts daughter arrived. She and brother would like sometime to discuss plan. I called and spoke with Hospice in [place]. She asks I call the [facility] person tomorrow to see if they will be available to admit this pt. I attempted to contact Jennifer at [facility]. She has left for the day. I recieved a text from [facility] who had agreed to transport this pt to [place] asking if this still the plan. I went and spoke with Dr. Beck and asked if he would be in agreement for this pt to remain here until Friday. I do not have any concrete plans for this pt as the family have not made a decision. Pt also looks to be declining. I am not here tomorrow to cont. to work on arrangements. He believes the family are wanting the pt to stay until Friday. I notified transport we will wait until Friday and contact them if we still need transport. I texted Jennifer from [facility] and let her know we will hold off until Friday and then contacted Hospice and let then know it will be Friday and I will fax orders Friday if we still need hospice.
[2025-01-14] MEDS ORDERED: ARTIFICIAL TEARS 15 ML BTL OU PRN (17:30)
[2025-01-14] MEDS ORDERED: ATROPINE SULFATE 1% OPTH DROPS SL PRN (17:30)
--- NOTE | 2025-01-14 17:34 | NUR ---
In and spoke with Saravanan and his sister, Isaura, who I have know for many years. Reviewed Hospice and they would like pt to remain here until Friday. Saravanan would like to go and see [facility] tomorrow. We did discuss pt seems to be declining and her breathing is labored and her color is off. Both feel she may not survive the weekend. We did discuss comfort car and Saravanan would like to wait and discuss this with Dr. Leong in the morning. Dr. Leong came to the room and let them know he is willing to proceed with whatever they would like to do. Will fu with patient and family on Friday.
[2025-01-14] MEDS ORDERED: SCOPOLAMINE 1 MG/3 DAYS PATCH 1 EACH TDSY TD SCH (18:00)
--- NOTE | 2025-01-14 18:49 | NUR ---
INFORMED DR SHELTON OF PATIENT VS. [facility] WILL PUT IN ORDERS.
[2025-01-14] MEDS ORDERED: LACTATED RINGER'S 1,000 ML IV ONE (19:00)
--- NOTE | 2025-01-14 19:39 | NUR ---
IVF infusing, eyes closed, non responsive, edema to hands present. IVF infusing, repositioned. seizure pads in place. f/c patent. new IV site started
--- NOTE | 2025-01-14 19:49 | NUR ---
tylenol iv, and bolus ivf started
--- NOTE | 2025-01-14 21:00 | NUR ---
Dr Leong in room, tele dc'd as per orders. Pt scored 6 in the MEWS . No rapid response called and MD aware of her situation. Pt is going into hospice. On 4L Oxymask, CPOX at bedside to keep 88-92% sats. Lungs coarse bilat, tacheipneic and tachychardic. eyes closed, non responsive to any stimuly. Repositioned at this time, f/c patent draining small amount of dark yellow urine. IVF bolus infusing, received IV Tylenol earlier, no s/sx adverse reaction to IV abx noted. Bruised areas over arms and redness in toes present, f/c care done. Yaunker at bedside. seizure pads in plaec, Bed alarm on.
--- NOTE | 2025-01-14 21:10 | NUR ---
Repositioned and floated Pt with RN assistance. Changd Pt's bedding and gown PRN. No other needs expressed by Pt-Pt is non-responsive. Call light left in reach. Seizure pads and fall mat in place. Bed alarm on.
--- NOTE | 2025-01-14 22:44 | NUR ---
Increased resp rate at 32, increaed coarseness of lung sounds, present, desatted to 84%. RT notified. O2 changed to termaflowflow 30L 50%, agonal respiration present. RT in room, Dr Leong notified of above. Pt is a Limited code. states "I will be there to assess pt and will notify the family".
--- NOTE | 2025-01-14 22:52 | NUR ---
Dr Leong in room, Pt on 40L 60% vapotherm
--- NOTE | 2025-01-14 22:58 | NUR ---
DR MATHEWS CALLED PTS SON AND INFORMED HIM OF MOTHERS DECLINING STATUS. MD WILL CHANGE CODE TO COMFORT CARE
[2025-01-14] MEDS ORDERED: LORazepam 2 MG/ML VIAL IV PRN ×3 (23:00)
[2025-01-14] MEDS ORDERED: MORPHINE SULFATE 4 MG/ML VIAL IV PRN ×2 (23:00)
[2025-01-14] MEDS ORDERED: MORPHINE SULFATE 10 MG/ML VIAL IV PRN (23:00)
--- NOTE | 2025-01-14 23:17 | NUR ---
DR MATHEWS AT RN STATION AND PUTTING IN NEW ORDERS pt IS NOW COMFORT CARE. VERBAL ORDER READ BACK TO DC pt's IV ABX-VANCO AND ZOSYN. ORDERS DC'D AND PRIMARY RN AWARE.
--- NOTE | 2025-01-15 00:18 | NUR ---
STILL NON RESPONSIVE, TURNED AND REPOSITIONED ON VAPOTHERM 40L/60%. NC. AGONAL BREATHING PRESENT, ORAL CARE DONE, THICK WHITE ORAL DISCHARGE CLEANSED. F/C PATENT. BED ALRM IN PLACE PT N COMOFRT CARE AT THIS TIME, IVF INFUSING, CALM
--- NOTE | 2025-01-15 01:58 | NUR ---
RESTING, STILL UNRESPONSIVE, ON VAPOTHERM 40L 60% O2/NC, RESP MORE EVEN AND UNLABORED, REPOSITIONED, F/C PATENT, LUNGS STILL COARSE., IVF INFUSING W/O PROBLEMS
[2025-01-15 02:01] VITALS: BP 92/54
--- NOTE | 2025-01-15 05:18 | NUR ---
pt continues on Vapotherm 30L/40% O2 NC, Increaed and shallow resp rate, circumoral cyanosis around mouth present. Was medicated with Morphine 4mg IV per resp distress. Turned and repositioned. F/C patent, draining large amount of urine at this time. skin care done. HOB and feet elevated for comofrt. Oral care done. closes mouth when doing oral care.
--- NOTE | 2025-01-15 06:42 | NUR ---
Tacheipneic and shallow breathing noted again. on Vapotherm, Medicated with Ativan 1mg IV. Son in room
--- NOTE | 2025-01-15 07:25 | NUR ---
RECEIVED REPORT FROM MANDEEP MATA. PATIENT RESTING IN BED WITH EYES CLOSED, SON AT BEDSIDE. DR MATHEWS AND RT STEPAN IN ROOM UPDATING SON ON PLAN OF CARE. IVF D/C, IV SALINE LOCKED. PATIENT PLACED ON 2LNC FOR COMFORT. NO NEEDS IDENTIFIED AT THIS TIME. CALL LIGHT IN REACH.
[2025-01-15 08:15] VITALS: BP 95/53
--- NOTE | 2025-01-15 08:43 | NUR ---
PATIENT IS LAYING IN BED. PATIENTS VITAL SIGNS, ORAL CARE AND AM CARE WAS DONE. PATIENT WAS REPOSITIONED ON HER LEFT SIDE. PATIENTS CALL LIGHT IS WITHIN REACH AND NO FURTHER NEEDS AT THIS TIME.
--- NOTE | 2025-01-15 10:57 | NUR ---
PT BEING REPOSITIONED, PT SUCTIONED DUE TO SECRETIONS, AND ATROPINE ADMINISTERED (PER EMAR).
--- NOTE | 2025-01-15 10:59 | NUR ---
PATIENT LAYING IN BED, WITH FAMILY AT BEDSIDE. THIS KENO TERMINAL OPERATOR AND RN TIA AND CJ CHANGED PATIENTS BRIEF AND PREFORMED CATHETER CARE . PATIENT WAS READJUSTED IN BED. PATIENTS CALL LIGHT IS WITHIN REACH AND NO FURTHER NEEDS AT THIS TIME.
--- NOTE | 2025-01-15 12:22 | NUR ---
ADMINISTERED IV MORPHINE FOR INCREASED RESP RATE. PT IS RESTING COMFORTABLY. FAMILY AT BEDSIDE. CALL LIGHT IN REACH.
--- NOTE | 2025-01-15 14:06 | NUR ---
PATIENT IS LAYING IN BED WITH FAMILY AT BEDSIDE. PATIENT WAS READJUSTED IN BED AND CATHETER WAS EMPTIED. CALL LIGHT IS WITHIN REACH AND NO FURTHER NEEDS AT THIS TIME.
--- NOTE | 2025-01-15 15:46 | NUR ---
PATIENT IS LAYING IN BED. PATIENT HAD A BEDBATH. PATIENTS GOWN AND SHEETS WERE CHANGED. PATIENTS CALL LIGHT IS WITHIN REACH AND NO FURTHER NEEDS AT THIS TIME.
--- NOTE | 2025-01-15 16:58 | NUR ---
ROUNDED ON PATIENT, FAMILY AT BEDSIDE. TACHYPANIC BREATHING WITH LESSENED SECRETIONS. FAMILY DENIES NEEDS AT THIS TIME. CALL LIGHT IN REACH.
--- NOTE | 2025-01-15 17:26 | NUR ---
PATIENT IS LAYING IN BED. TWO CNAS AND TWO RN HELP CHANGE PATIENTS BRIEF. PATIENT WAS REPOSITIONED IN BED. CALL LIGHT IS WITHIN REACH AND NO FURTHER NEEDS AT THIS TIME.
--- NOTE | 2025-01-15 18:32 | NUR ---
PATIENT IS LAYING IN BED. PATIENT WAS REPOSITIONED. CALL LIGHT IS WITHIN REACH AND NO FURTHER NEEDS AT THIS TIME.
--- NOTE | 2025-01-15 19:28 | NUR ---
PT ON 2LNC, TACHEIPNEIC AT 24,BUT W/O DISTRESS, NO CYNOSIS NOTED, [address], STILL UNRESPONSIVE, SEIZURE PADS IN PLACE. PT ON COMOFRT CARE. SON IN ROOM.
--- NOTE | 2025-01-15 20:23 | NUR ---
SOME RESP DISTRESS NOTED, TACHEIPNEIC, IRREGULAR, LABORED, MEDICATED WITH MORPHINE 4MG IV. TURNED AND REPOSITIONED, ON 2LNC, ORAL CARE DONE WITH SONE RESISTANCE FROM PT, MOVING TOES, ELEVATED LEGS, F/C PATENT
--- NOTE | 2025-01-15 22:57 | NUR ---
repositioned, f/c patent, on 2 LNC, non responsive
--- NOTE | 2025-01-15 23:12 | NUR ---
no resp distress at this time, comfortable, repositioned, IV Ativan scheduled given
--- NOTE | 2025-01-16 00:57 | NUR ---
VERBAL REPORT RECEIVED FROM MANDEEP MATA, THIS RN TO TAKE OVER PRIMARY RN AT THIS TIME. pt RESTING QUIETLY IN BED WITH EYES CLOSED. RR EVEN AND UNLABORED, 2LNC IN PLACE. NO SIGNS OF RESPIRATORY DISTRESS. pt APPEARS COMFORTABLE AND RELAXED, REMAINS UNRESPONSIVE. BED ALARM ON AND CALL LIGHT IN REACH.
--- NOTE | 2025-01-16 01:36 | NUR ---
rounded on pt, pt remains unresponive to interactions with staff. incontinent of loose bm, katherine and cath care done with help from second rn cinthia thomas and carmen buckley. bilatral hips floats along with ble and arms. left ac iv site dc'd d/t puffy appearance. iv site to right ac wnl, remains saline locked. 250mls emptied from harris. rr even and unlabored, no s/sx of respiratory distress noted. 2lnc remains in place.
--- NOTE | 2025-01-16 02:42 | NUR ---
pt REMAINS IN BED WITH EYES CLOSED, ON 2LNC. NO DISTRESS NOTED, pt MOUTH BREATHING. RR REMAINS EVEN, pt APPEARS COMFORTABLE. REMAINS FLOATED IN BED.
--- NOTE | 2025-01-16 03:10 | NUR ---
REMOVED PILLOW FROM PT'S LEFT SIDE, REPOSITIONED PT. PT RESTING COMFORTABLY. TOOK OUT ROOM TRASH AND CLEANED UP ROOM.
--- NOTE | 2025-01-16 04:00 | NUR ---
rounded on pt, pt in bed with eyes closed. respirations even and pt continues to appear comforable and relaxed. no disng of distress or air hunger noted. oral care done.
--- NOTE | 2025-01-16 04:38 | NUR ---
rounded on pt, no changes to breathing noted. pt remains in bed with eyes closed, largely mouth breathing. respirations remain even, pillow removed from hip and readjusted to ble. reddened areas noted along lateral edge of left foot with bruising/callus near left heel. heel elevated. no change since this rn began care.
--- NOTE | 2025-01-16 05:53 | NUR ---
rounded on pt, no changes noted. respirations unchanged, will continue to monitor. pt continues to appear comfortable and relaxed.
--- NOTE | 2025-01-16 07:20 | NUR ---
RECEIVED REPORT FROM MANDEEP MATA. PATIENT RESTING IN BED WITH EYES CLOSED. RESPRIATIONS EVEM. 2LNC ON, SEIZURE PRECAUTIONS IN PLACE, SADAF AUGUSTINE. FAMILY AT BEDSIDE. NO NEEDS IDENTIFIED AT THIS TIME. CALL LIGHT IN REACH.
--- NOTE | 2025-01-16 08:00 | NUR ---
PATIENT LAYING IN BED, RESPIRATIONS EVEN. 1.5LNC IN PLACE. FAMILY AT BEDSIDE. NO NEEDS IDENTIFED AT THIS TIME. CALL LIGHT IN REACH.
--- NOTE | 2025-01-16 09:00 | NUR ---
PATIENT RESTING IN BED, EYES CLOSED, RESPIRATION EVEN, NASAL CANNULA ON, TALAVERA DRAINING. FAMILY AT BEDSIDE. NO NEEDS AT THIS TIME. CALL LIGHT IN REACH.
--- NOTE | 2025-01-16 10:47 | NUR ---
ASSESSMENT COMPLETED, SCHEDULED MEDICATIONS GIVEN PER EMAR ORDERS. PATIENT RESTING WITH EYS CLOSED, TACHYPANIC AT 37, PRN MEDICATION GIVEN FOR AIR HUNGER PER EMAR ORDER. PATIENT DECREASED TO 1.5LNC, RT STEPAN NOTIFIED. PATIENT AT BEDSIDE. NO NEEDS IDENTIFIED AT THIS TIME. CALL LIGHT IN REACH.
--- NOTE | 2025-01-16 11:30 | NUR ---
ROUNDED ON PATIENT, TANIA CARE AND TALAVERA CARE WERE PERFORMED BY THIS RN AND MANDEEP RASMUSSEN. NEW CHUX AND BREIF PLACED. SON IN ROOM. PATIENT REPOSITIONED IN BED FOR Q2 TURN. FAMILY DENIES NEEDS AT THIS TIME. CALL LIGHT IN REACH.
--- NOTE | 2025-01-16 13:00 | NUR ---
ROUNDED ON PATIENT, FAMILY AT BEDSIDE. PATIENT RESPIRATIONS EVEN BUT TACHYIPANIC. 1.5LNV PLACED, TALAVERA DRAINING. NO NEEDS IDENTIFED AT THIS TIME. CALL LIGHT IN REACH.
--- NOTE | 2025-01-16 15:00 | NUR ---
THIS HOME SUPERVISOR AND MANDEEP VIRAL IN TO TURN PATIENT. PATIENT CHECKED AND HAD NO INCONT. PATIENT TURNED WITH PILLOWS PLACED UNDER RIGHT SIDE. CALL LIGHT IN REACH. FAMILY IN ROOM.
--- NOTE | 2025-01-16 15:30 | NUR ---
DAUGHTER OUT IN NURSES STATION ASKING FOR HELP IN PT ROOM. THIS RN AND TIA, RN IN ROOM. DAUGHTER STATES PT STOPPED BREATHING FOR 20-30 SECONDS. FAMILY EDUCATED ON APENIC EPISODE. FAMILY AT EASE AT THIS TIME. NO FURTHER NEEDS.
--- NOTE | 2025-01-16 15:39 | NUR ---
PT RESTING IN BED, APPEARS COMFORTABLE. RR 26. FAMILY AT BEDSIDE. CALL LIGHT IN REACH.
--- NOTE | 2025-01-16 16:24 | NUR ---
SCHEDULED MEDICATION GIVEN PER EMAR ORDER. PATIENT RESTING WITH EYES CLOSED RESPIRATIONS EVEN AND UNLABORED. FAMILY AT BEDSIDE. NO NEEDS IDENTIFIED AT THIS TIME. CALL LIGHT IN REACH.
--- NOTE | 2025-01-16 17:14 | NUR ---
ROUNDED ON PATIENT, RESTING IN BED, RESPRIATIONS EVEN AND UNLABORED AT 20. FAMILY AT BEDSIDE. FAMILY DENIES NEEDS AT THIS TIME. CALL LIGHT IN REACH.
--- NOTE | 2025-01-16 17:39 | NUR ---
PATIENT REPOSITIONED AND TURNED. OUTPUT RECORDED. RESPIRATIONS EVEN AND UNLABORED. FAMILY AT BEDSIDE, DENIES NEEDS AT THIS TIME. CALL LIGHT IN REACH.
--- NOTE | 2025-01-16 19:21 | NUR ---
REPORT RECEIVED FROM DAY SHIFT RN. PT LYING IN BED RESTING WITH EYES CLOSED. RESPIRATIONS EVEN. WHITE BOARD UPDATED. CALL LIGHT IN REACH.
--- NOTE | 2025-01-16 21:15 | NUR ---
EVENING ASSESSMENT COMPLETE. SCHEDULED MEDS ADMIN PER EMAR. RR 38. PRN ADMIN PER EMAR. PT INCONTINENT OF SMALL AMOUNT BM. TANIA/TALAVERA CARE DONE. NEW ATTENDS IN PLACE. 2PA TO REPOSITION IN BED. INTACT BLISTER NOTED ON LEFT HEEL. HEELS FLOATED ON PILLOW AND ROLLED TOWEL. TALAVERA PATENT WITH 150 ML YELLOW URINE. 1L/NC IN PLACE. SEIZURE PADS IN PLACE. BED ALARM FOR SAFETY. PT IN VIEW OF NURSES STATION.
--- NOTE | 2025-01-16 23:25 | NUR ---
SCHEDULED MEDS ADMIN PER EMAR. PT RESTING WITH EYES CLOSED. RESPIRATIONS EVEN AND NON LABORED. ORAL CARE DONE. BED ALARM IN PLACE. CALL LIGHT IN REACH.
--- NOTE | 2025-01-17 01:08 | NUR ---
PT RESTING WITH EYES CLOSED. 2PA TO REPOSTION IN BED WITH PILLOWS. ORAL CARE COMPLETE. RR 30. PRN ADMIN PER EMAR. BED ALARM IN PLACE. PT IN VIEW OF NURSES STATION.
--- NOTE | 2025-01-17 01:49 | NUR ---
PT IN BED RESTING WITH EYES CLOSED. RR 20, EVEN AND NON LABORED. 1L/NC IN PLACE. ORAL CARE COMPLETE. BED ALARM IN PLACE. CALL LIGHT IN REACH.
--- NOTE | 2025-01-17 03:40 | NUR ---
PT IN BED RESTING WITH EYES CLOSED. RR 32. PRN ADMIN PER EMAR. PT REPOSITIONED IN BED WITH PILLOWS. LIMITED ORAL CARE DONE DUE TO PT BITING MOUTH SWAB. CHAPSTICK APPLIED. PT LEFT IN RELAXED POSITION. BED ALARM IN PLACE.
--- NOTE | 2025-01-17 04:10 | NUR ---
RESPIRATIONS 20. PT LYING IN RELAXED POSITION. NO S/SX OF DISCOMFORT NOTED. BED ALARM IN PLACE. PT IN VIEW OF NURSES STATION.
--- NOTE | 2025-01-17 05:44 | NUR ---
PT IN BED RESTING WITH EYES CLOSED. RR 28. PRN ADMIN PER EMAR. 2 PA TO REPOSITION IN BED WITH PILLOWS. ORAL CARE DONE. CHAPSTICK APPLIED. BED ALARM IN PLACE.
--- NOTE | 2025-01-17 06:55 | NUR ---
SCHEDULED MEDS ADMIN PER EMAR. PT RESTING WITH EYES CLOSED. RESPIRATIONS EVEN AND NON LABORED. FAMILY AT BEDSIDE. DENIES NEEDS. BED ALARM IN PLACE. CALL LIGHT IN REACH.
--- NOTE | 2025-01-17 08:00 | NUR ---
Spoke with pts son, Saravanan, and discussed plan to send pt to [facility] today as was planned on Friday. Saravanan is not happy with this and would like Swetha to remain in the hospital. He is stating medicaid will cover the cost. I let him know it really isn't about the money. We are a critical access hospital and she has been here for 6 days. She has a safe dc and this is the next step. I let him know the hospitalist will be in to speak with him. I called [facility] and hiral Rodriguez in admission pt can arrive anytime today. I contact [facility]osp[facility] from [place] and they can admit as long as pt arrives by [address] I then contact [facility] and they will call me back.
--- NOTE | 2025-01-17 08:00 | NUR ---
RECIEVED SHIFT REPORT FROM MANDEEP CUNNINGHAM. PT IS RESTING IN BED, APPEARS COMFORTABLE. RR 18 AT THIS TIME. FAMILY AT BEDSIDE. CALL LIGHT IN REACH.
--- NOTE | 2025-01-17 08:52 | NUR ---
PT IS RESTING IN BED, FAMILY AT BEDSIDE. MEDICATIONS ADMINISTERED AT THIS TIME. NO FURTHER NEEDS. CALL LIGHT IN REACH.
--- NOTE | 2025-01-17 10:21 | NUR ---
IN ROOM TO CHECK ON PT, RR INCREASED TO 24, PRN MEDICATION ADMINSTERED (SEE EMAR). FAMILY AT BEDSIDE. CALL LIGHT IN REACH.
--- NOTE | 2025-01-17 10:30 | NUR ---
Spoke with Quan from [facility]. He has called for staff to transport. He will call me back when he has a response.
--- NOTE | 2025-01-17 11:30 | NUR ---
Received a call from Pedro Luis at EMS. EMS will be here to transport Swetha at 12 noon or shortly before. Updated Dr. Banuelos and charge nurse. Also called and updated [facility] and Hospice. Returned and update pts son that is now in the room. Let him know orders have been sent, hospice will admit, and pt will transport shortly prior to 1pm. He makes the comment, "Thats fine if you want to go to all that work for a few hours." I asked what he meant by this comment. He believes his mom will pass in a few hours. I let him know we really can"t see the future. We have all felt she would pass over the weekend, but we really don't know. Dr. Banuelos discussed this with them and she does not meet criteria to remain as an IP and she can now go to [facility] and have comfort care. His brother Saravanan chose [facility] and they will provide excellent care. I asked if he has further questions and he denies.
--- NOTE | 2025-01-17 11:40 | NUR ---
PT IS RESTING IN BED, APPEARS COMFORTABLE. FAMILY AT BEDSIDE. SCOTT JORDAN IN ROOM TO DISCUSS TRANSPORT ESIMATED ARRIVAL. NO NEEDS AT THIS TIME. CALL LIGHT IN REACH.
--- NOTE | 2025-01-17 12:14 | NUR ---
EMS HERE FOR PT. REPORT GIVEN TO EMS CREW
--- NOTE | 2025-01-17 12:17 | NUR ---
CALLED [facility] SPOKE AND GAVE REPORT TO CARLOS. ALL QUESTIONS ANSWERED.
== END 2025-01-17 12:15 | disposition hospice, inpatient (51) | DRG 193 ==
LOC: ED 16:53 → MS 20:56
PROVIDERS: Emergency Medicine; ADMIT Family Medicine; ATTEND Family Medicine
PROC: 0T9B70Z Drainage of Bladder with Drainage Device, Via Natural or Artificial Opening (ICD-10-PCS; principal; 2025-01-11)
PROC: 3E03329 Introduction of Other Anti-infective into Peripheral Vein, Percutaneous Approach (ICD-10-PCS; 2025-01-11)
DX: J18.9 Pneumonia, unspecified organism (principal); J96.01 Acute respiratory failure with hypoxia; S42.202A Unspecified fracture of upper end of left humerus, initial encounter for closed fracture; N39.0 Urinary tract infection, site not specified; K92.2 Gastrointestinal hemorrhage, unspecified; Z51.5 Encounter for palliative care; I10 Essential (primary) hypertension; E78.00 Pure hypercholesterolemia, unspecified; F03.90 Unspecified dementia, unspecified severity, without behavioral disturbance, psychotic disturbance, mood disturbance, and anxiety; F17.210 Nicotine dependence, cigarettes, uncomplicated; K44.9 Diaphragmatic hernia without obstruction or gangrene; R56.9 Unspecified convulsions; Z98.890 Other specified postprocedural states; Z87.442 Personal history of urinary calculi; Z90.710 Acquired absence of both cervix and uterus; Z79.899 Other long term (current) drug therapy; X58.XXXA Exposure to other specified factors, initial encounter
CPT/HCPCS: 31720; 36415; 70450; 70496; 70498; 71045; 71260; 73030; 74177; 80053; 80061; 80307; 81001; 82803; 83036; 83605; 83690; 83735; 84100; 84484; 85025; 85060; 85610; 85730; 86850; 86900; 86901; 87088; 87502; 93005; 93010; 94640; 94761; 94762; 94799; 95816; A4311; J0131; J0456; J0696; J0780; J1815; J1953; J2060; J2250; J2270; J2405; J2470; J2543; J3373; J3475; J3480; J3490; J7030; J7060; J7121; Q9967; U0002